=== PATIENT | male | born 1960 | race Caucasian/White ===

== ENCOUNTER → 2017-03-16 | Outpatient (CLI) | payer MEDICARE, MEDICAID | END | disposition short-term general hospital (02) | LOC: CLPHYS 09:55 | DX: M54.16 Radiculopathy, lumbar region (principal); G62.9 Polyneuropathy, unspecified ==

== ENCOUNTER → 2017-03-24 | Outpatient (CLI) | payer MEDICARE, MEDICAID | END | disposition short-term general hospital (02) | LOC: CLNEUR 10:57 | DX: M25.571 Pain in right ankle and joints of right foot (principal); M25.471 Effusion, right ankle; E11.42 Type 2 diabetes mellitus with diabetic polyneuropathy; M79.89 Other specified soft tissue disorders; G82.20 Paraplegia, unspecified; R25.2 Cramp and spasm ==